=== PATIENT | female | born 1985 | race Two or more races ===

== ENCOUNTER 2018-10-16 17:12 | Emergency (ER) | payer OTHER ==
[~2018-10-16] VITALS: Ht 165.1 cm; Wt 56.7 kg
[~2018-10-16 17:12] MED LIST: AMOX1TAB12 PO; LEVSIN0.125 MG PO; NASONEB NASAL1 EACH MC; OBTREX PRENATAL1 TAB PO; PHENAGIL TABLE1 EACH PO; PROTONIX40 MG PO; ZANTAC300 MG PO; ZOFRAN4 MG PO
== END 2018-10-16 18:35 | disposition home or self-care (01) ==
LOC: ER 17:12
DX: S01.02XA Laceration with foreign body of scalp, initial encounter (principal); W45.8XXA Other foreign body or object entering through skin, initial encounter; Y93.89 Activity, other specified; Y92.89 Other specified places as the place of occurrence of the external cause; Y99.8 Other external cause status

== ENCOUNTER 2021-04-24 09:44 | Outpatient (CLI) | payer OTHER | END 2021-04-24 10:00 | disposition home or self-care (01) | LOC: RX STUDY 09:44 | PROVIDERS: ATTEND Obstetrics & Gynecology Reproductive Endocrinology | DX: N94.0 Mittelschmerz (principal); D25.0 Submucous leiomyoma of uterus ==

== ENCOUNTER → 2021-09-17 | Emergency (ER) | payer OTHER ==
[~2021-09-17] VITALS: Ht 165.1 cm; Wt 70.3 kg
[~2021-09-17] MED LIST changes: +ALBUTEROL2.5 MG/3 M IH; +LEVOFLOXACIN500 MG PO; +TUSNEL LIQUID178 ML PO; +ZYRTEC10 MG PO
== END | disposition home or self-care (01) ==
LOC: ER 16:21
DX: J06.9 Acute upper respiratory infection, unspecified (principal); Z91.013 Allergy to seafood; Z20.822 Contact with and (suspected) exposure to COVID-19

== ENCOUNTER 2023-03-21 23:08 | Emergency (ER) | payer OTHER ==
[~2023-03-21] VITALS: Ht 162.6 cm; Wt 59.0 kg
== END 2023-03-22 03:40 | disposition home or self-care (01) ==
LOC: ER 03-22 02:34
DX: S52.592A Other fractures of lower end of left radius, initial encounter for closed fracture (principal); S90.122A Contusion of left lesser toe(s) without damage to nail, initial encounter; W10.8XXA Fall (on) (from) other stairs and steps, initial encounter; Y93.89 Activity, other specified; Y92.098 Other place in other non-institutional residence as the place of occurrence of the external cause; Y99.8 Other external cause status

== ENCOUNTER 2023-04-13 08:20 | Emergency (ER) | payer OTHER ==
[~2023-04-13] VITALS: Ht 162.6 cm; Wt 59.0 kg
[2023-04-13 10:24] LABS: HEMATOCRIT 39.7 % (36.0-45.00); HEMOGLOBIN 13.6 g/dL (12.0-15.00); MEAN CELL VOLUME 83.6 fL (80.00-100.00); MEAN CORPUSCULAR HEMOGLOBIN 28.6 pg (27.00-32.0); MEAN CORPUSCULAR HGB CONC 34.2 g/dl (32.0-36.0); PLATELET COUNT 180 K/uL (150-450); RED BLOOD COUNT 4.75 M/uL (4.00-6.00); RED CELL DISTRIBUTION WIDTH 12.3 % (11.5-14.5)
== END 2023-04-13 10:33 | disposition home or self-care (01) ==
LOC: ER 08:20
PROVIDERS: General Practice
DX: J10.1 Influenza due to other identified influenza virus with other respiratory manifestations (principal); Z20.822 Contact with and (suspected) exposure to COVID-19